=== PATIENT | female | born 1975 | race Asian ===

== ENCOUNTER 2021-03-14 15:19 | Emergency (ER) | payer OTHER ==
[~2021-03-14] VITALS: Ht 162.6 cm; Wt 68.0 kg
[2021-03-14 15:59] VITALS: BP 115/64
== END 2021-03-14 16:22 | disposition home or self-care (01) ==
LOC: ER 15:19
DX: S30.811A Abrasion of abdominal wall, initial encounter (principal); J45.909 Unspecified asthma, uncomplicated; Z88.0 Allergy status to penicillin; V43.62XA Car passenger injured in collision with other type car in traffic accident, initial encounter; Y93.89 Activity, other specified; Y92.488 Other paved roadways as the place of occurrence of the external cause
CPT/HCPCS: 99283